=== PATIENT | male | born 1980 | race Caucasian/White ===

== ENCOUNTER 2022-03-09 19:07 | Emergency (ER) | payer OTHER ==
[2022-03-09 19:38] VITALS: BMI 29.9
[2022-03-09] MEDS ORDERED: ACETAMINOPHEN 500 MG TABLET (FP) PO ONE (20:54)
[2022-03-09] MEDS ORDERED: IBUPROFEN 600 MG TABLET (FP) PO ONE (21:30)
[2022-03-09] MEDS ORDERED: ACETAMINOPHEN 500 MG TABLET (FP) ONE (21:55)
[2022-03-09] MEDS ORDERED: IBUPROFEN 400 MG TABLET (FP) PO ONE (21:55)
[2022-03-09 23:23] VITALS: BP 138/98; PULSE 100; RESP 18; TEMP 98.2
== END 2022-03-09 23:23 | disposition home or self-care (01) ==
LOC: JERFT 19:07
DX: J06.9 Acute upper respiratory infection, unspecified (principal)
CPT/HCPCS: 0241U-QW; 87651; 99284-25